=== PATIENT | male | born 1950 | race Caucasian/White ===

== ENCOUNTER 2019-01-28 13:01 | Day surgery (SDC) | payer MEDICARE, OTHER ==
[~2019-01-28 13:01] MED LIST: Lactated Ringers 1,000 ML IV SCH; Sodium Chloride 0.9% 10 ML Syringe FLUSH PRN
[2019-01-28] MEDS ORDERED: Propofol 200 MG/20 ML SDV ONE ×2 (14:32→15:03)
[2019-01-28] MEDS ORDERED: fentaNYL 100 MCG/2 ML SDV ONE (14:33)
[2019-01-28] MEDS ORDERED: Bupivacaine 0.25%/EPINEPHrine 1:200,000 30 ML SDV ONE (14:40)
--- NOTE | 2019-01-28 19:41 | OR ---
PREOPERATIVE DIAGNOSIS: Large symptomatic lipoma, left lower neck. PROCEDURE PROPOSED: Excision of large lipoma, left lower neck, 6 x 4.5 cm. PROCEDURE DONE: Excision of large lipoma, left lower neck, 6 x 4.5 cm. OCCUPATIONAL WORK EXPERIENCE TEACHER: Heather Noguera. INDICATION: This is a 68-year-old gentleman with a symptomatic large lipoma of the lower neck that is becoming increasingly problematic to him with some pain across the trapezius muscle indicating that this lipoma is likely invading into the muscle or fascia. He has had it for about 10 years and it has been slowly growing. TECHNIQUE: The patient was brought to the operative suite, given MAC anesthesia, and placed in the right lateral decubitus position. The left posterior neck and upper back area were then sterilely prepped and draped. The skin and surrounding tissue were locally anesthetized with 0.25% Marcaine with epinephrine using a total of about 30 mL throughout the procedure. The transverse incision was made over this mass and carried down through the rather thick subcutaneous tissue until I encountered the actual lipomatous mass which appeared to be quite well encapsulated. The lipomatous mass was dissected free from the surrounding tissue and removed intact measuring 6 x 4.5 cm. Hemostasis was obtained with cautery in the depths of the tissue and the subcutaneous tissues reapproximated with interrupted 3-0 Vicryl and the skin closed with subcuticular stitch of 4-0 Vicryl and a pressure dressing was applied. He tolerated the procedure well with minimal blood loss and he was taken back to [facility] in good condition. SCM: 01/28/2019 15:17:54 MODL: 01/28/2019 19:31:57 /[id number]
== END 2019-01-28 16:19 | disposition home or self-care (01) ==
LOC: VM.SDS 13:01
PROVIDERS: ATTEND Surgery
DX: D17.0 Benign lipomatous neoplasm of skin and subcutaneous tissue of head, face and neck (principal); I10 Essential (primary) hypertension; I45.10 Unspecified right bundle-branch block; I25.2 Old myocardial infarction; E78.00 Pure hypercholesterolemia, unspecified; E21.3 Hyperparathyroidism, unspecified; K44.9 Diaphragmatic hernia without obstruction or gangrene; K21.9 Gastro-esophageal reflux disease without esophagitis; K31.84 Gastroparesis; R73.03 Prediabetes; M1A.9XX1 Chronic gout, unspecified, with tophus (tophi); E66.9 Obesity, unspecified; Z68.30 Body mass index [BMI] 30.0-30.9, adult; Z79.82 Long term (current) use of aspirin; Z79.899 Other long term (current) drug therapy
CPT/HCPCS: 00300; 21552; 93005; J2704; J3010; J7120

== ENCOUNTER 2019-10-23 13:44 | Emergency (ER) | payer MEDICARE, OTHER ==
[2019-10-23] MEDS ORDERED: Ondansetron 4 MG/2 ML SDV IVPUSH ONE (13:59)
[2019-10-23] MEDS ORDERED: HYDROmorphone 1 MG/ML Syringe IVPUSH ONE (13:59)
[2019-10-23] MEDS ORDERED: Sodium Chloride 0.9% 10 ML Syringe FLUSH PRN (14:00)
[2019-10-23] MEDS ORDERED: Ketorolac 15 MG/ML SDV IVPUSH ONE (14:00)
[2019-10-23 14:28] LABS: ANION GAP 14.8 mmol/L (10-20); CHLORIDE,CL 100 mmol/L (98-107); SODIUM,NA 139 mmol/L (136-145)
--- NOTE | 2019-10-23 14:36 | EDM.PDOC ---
ED HPI GENERAL MEDICAL PROBLEM - General Chief Complaint: Abdominal Pain Time Seen by Provider: 10/23/19 13:55 Source of Information: Reports: Patient, Provider History Limitations: Reports: No Limitations - History of Present Illness INITIAL COMMENTS - FREE TEXT/NARRATIVE: Pt. presents to ER with complaints of abdominal discomfort. Pt. states that it started today about an hour after eating lunch. Pt. states he has been experiencing epigastric pain and underwent a gallbladder ultrasound approx. 1 week ago. There was no evidence of cholelithiasis or cholecystitis. ALT was 222 and AST was 80 on 10/18/19. His total bilirubin then was 2.5. He did not have a white count at that time. Pt. reports that his stool was light colored last week and he also reports dark coloration to his urine. He states that these symptoms have improved. Pt. presented to clinic with similar symptoms today. He was found to be hypotensive in lab today so he was brought to ER for further evaluation and treatment. On arrival to ED, nursing noted a blood pressure of 117/68. Pt. was complaining of a significant amount of pain in the mid upper and upper left abdominal area. Onset: Today Onset Date: 10/23/19 Location: Reports: Abdomen Quality: Reports: Ache, Stabbing, Throbbing Severity: Severe Worsens with: Reports: Eating Associated Symptoms: Reports: Loss of Appetite, Nausea/Vomiting. Denies: Diaphoresis, Fever/Chills Epigastric Pain Score (Numeric/FACES): 0 - Related Data Allergies Allergy/AdvReac Type Severity Reaction Status Date / Time No Known Allergies Allergy Verified 10/23/19 14:22 Home Meds: Home Meds Ascorbate Calcium [Vitamin C] 1,000 mg PO DAILY 01/24/19 [History] Biotin 10 mg PO DAILY 01/24/19 [History] Cholecalciferol (Vitamin D3) [Vitamin D3] 1 cap PO DAILY 01/24/19 [History] Flaxseed Oil 1 cap PO DAILY 01/24/19 [History] Ibuprofen 400 mg PO DAILY 01/24/19 [History] Lisinopril 2 tab PO DAILY 01/24/19 [History] Omeprazole Magnesium 1 tab PO DAILY 01/24/19 [History] Psyllium [Metamucil] 4 cap PO BID 01/24/19 [History] Saw Bernie Fruit [Saw Bernie] 1 cap PO BID 01/24/19 [History] Sennosides [Senna] 1 tab PO DAILY 01/24/19 [History] allopurinoL [Zyloprim] 0.5 tab PO DAILY 01/24/19 [History] hydroCHLOROthiazide [Hydrochlorothiazide] 25 mg PO DAILY 01/24/19 [History] Ubidecarenone [Coenzyme Q-10] 200 mg DAILY 10/23/19 [History] Past Medical History HEENT History: Reports: None Cardiovascular History: Reports: High Cholesterol, Hypertension Respiratory History: Reports: None Gastrointestinal History: Reports: GERD, Hiatal Hernia, Other (See Below) Genitourinary History: Reports: None Musculoskeletal History: Reports: Gout Neurological History: Reports: None Psychiatric History: Reports: None Endocrine/Metabolic History: Reports: Hyperparathyroidism, Obesity/BMI 30+, Other (See Below) Other Endocrine/Metabolic History: prediabetes Hematologic History: Reports: None Immunologic History: Reports: None Oncologic (Cancer) History: Reports: None Dermatologic History: Reports: None - Past Surgical History Head Surgeries/Procedures: Reports: None HEENT Surgical History: Reports: None Cardiovascular Surgical History: Reports: None Respiratory Surgical History: Reports: None GI Surgical History: Reports: EGD Male Surgical History: Reports: None Neurological Surgical History: Reports: None Musculoskeletal Surgical History: Reports: None Oncologic Surgical History: Reports: None Dermatological Surgical History: Reports: None ED ROS GENERAL - Review of Systems Review Of Systems: See Below Constitutional: Reports: No Symptoms HEENT: Reports: No Symptoms Respiratory: Reports: No Symptoms Cardiovascular: Reports: No Symptoms Endocrine: Reports: No Symptoms GI/Abdominal: Reports: Abdominal Pain, Distension. Denies: Black Stool, Bloody Stool, Hematemesis, Hematochezia, Melena : Reports: No Symptoms Musculoskeletal: Reports: No Symptoms Skin: Reports: No Symptoms Neurological: Reports: No Symptoms Psychiatric: Reports: No Symptoms Hematologic/Lymphatic: Reports: No Symptoms Immunologic: Reports: No Symptoms ED EXAM, GENERAL - Physical Exam Exam: See Below Exam Limited By: No Limitations General Appearance: Alert, WD/WN, No Apparent Distress Throat/Mouth: Normal Inspection, Normal Lips, Normal Teeth, Normal Gums, Normal Oropharynx, Normal Voice, No Airway Compromise Head: Atraumatic, Normocephalic Neck: Normal Inspection, Supple, Non-Tender, Full Range of Motion Respiratory/Chest: No Respiratory Distress, Lungs Clear, Normal Breath Sounds, No Accessory Muscle Use, Chest Non-Tender Cardiovascular: Normal Peripheral Pulses, Regular Rate, Rhythm, No Edema, No Gallop, No JVD, No Murmur, No Rub Peripheral Pulses: 4+: Radial (L) GI/Abdominal: Soft, No Organomegaly, No Mass, Distended, Tender (Male) Exam: Deferred Rectal (Males) Exam: Deferred Back Exam: Normal Inspection, Full Range of Motion Extremities: Normal Inspection, Normal Range of Motion, Non-Tender, No Pedal Edema, Normal Capillary Refill Neurological: Alert, Oriented, CN II-XII Intact, Normal Cognition, Normal Gait, Normal Reflexes, No Motor/Sensory Deficits Psychiatric: Normal Affect, Normal Mood Skin Exam: Warm, Dry, Intact, Normal Color, No Rash Lymphatic: No Adenopathy Course - Vital Signs Last Recorded V/S: Last Vital Signs Temp 36.3 C 10/23/19 13:44 Pulse 100 10/23/19 14:45 Resp 20 10/23/19 13:44 BP 128/71 10/23/19 14:45 Pulse Ox 99 10/23/19 13:44 - Orders/Labs/Meds Labs: Laboratory Tests 10/23/19 10/23/19 10/23/19 Range/Units 13:54 13:54 13:54 WBC 12.9 H (4.0-10.0) x10^3/uL RBC 5.32 (4.5-6.0) x10^6/uL Hgb 15.8 (14.0-18.0) g/dL Hct 46.1 (40.0-52.0) % MCV 86.7 (78.0-93.0) fL MCH 29.7 (26.0-32.0) pg MCHC 34.3 (32.0-36.0) g/dL RDW Coeff of Marielos 13.4 (10.0-15.0) % Plt Count 421 H (130-400) x10^3/uL Add Manual Diff Yes Neutrophils % (Manual) 63 (50-80) % Band Neutrophils % 3 (0-6) % Lymphocytes % (Manual) 26 (25-50) % Monocytes % (Manual) 8 (2-11) % Platelet Estimate Adequate Anisocytosis 1+ slight H PT 10.1 (10.0-12.8) SEC INR 0.9 L (2.0-3.5) Sodium 139 (136-145) mmol/L Potassium 3.8 (3.5-5.1) mmol/L Chloride 100 (98-107) mmol/L Carbon Dioxide 28 (21-32) mmol/L Anion Gap 14.8 (10-20) mmol/L BUN 17 (7-18) mg/dL Creatinine 1.2 (0.70-1.30) mg/dL Est Cr Clr Drug Dosing TNP Estimated GFR (MDRD) > 60 Glucose 135 H (74-106) mg/dL Calcium 10.1 (8.5-10.1) mg/dL Corrected Calcium 10.42 H (8.5-10.1) mg/dL Magnesium 1.8 (1.8-2.4) mg/dL Total Bilirubin 2.5 H (0.2-1.0) mg/dL AST 165 H (15-37) U/L ALT 195 H (16-63) U/L Alkaline Phosphatase 224 H (46-116) U/L Total Protein 7.4 (6.4-8.2) g/dL Albumin 3.6 (3.4-5.0) g/dL Globulin 3.8 Albumin/Globulin Ratio 0.95 Meds: Medications Discontinued Medications Generic Name Dose Route Start Last Admin Trade Name Freq PRN Reason Stop Dose Admin Hydromorphone HCl 1 mg 10/23/19 13:59 10/23/19 14:08 Dilaudid IVPUSH 10/23/19 14:00 1 mg ONETIME ONE Administration Iopamidol 100 ml 10/23/19 14:43 10/23/19 14:55 Isovue-300 (61%) IVPUSH 10/23/19 14:44 100 ml ONETIME ONE Administration Ketorolac Tromethamine 15 mg 10/23/19 14:00 10/23/19 14:05 Toradol IVPUSH 10/23/19 14:01 15 mg ONETIME ONE Administration Ondansetron HCl 4 mg 10/23/19 13:59 10/23/19 14:11 Zofran IVPUSH 10/23/19 14:00 4 mg ONETIME ONE Administration Sodium Chloride 10 ml 10/23/19 14:00 Saline Flush FLUSH ASDIRECTED PRN Keep Vein Open Departure - Departure Time of Disposition: 15:55 Disposition: Home, Self-Care 01 Clinical Impression: Epigastric pain - Discharge Information Instructions: Acetaminophen; Hydrocodone tablets or capsules, Gallbladder Eating Plan, Cholecystitis Referrals: Rosa Carvalho DO [Primary Care Provider] - Forms: ED Department Discharge Additional Instructions: Home to rest. Follow the gallbladder eating guideline as outlined in your discharge instructions. If you have continued pain, take norco 10/325mg 1 every 4-6 hours as needed for pain If you have pain that is out of control, or if you have fever, weakness, etc. return to ER. Sepsis Event Note - Focused Exam Date Exam was Performed: 10/25/19 Time Exam was Performed: 01:32 - Assessment/Plan Plan: Home to rest. Follow the gallbladder eating guideline as outlined in your discharge instructions. If you have continued pain, take norco 10/325mg 1 every 4-6 hours as needed for pain If you have pain that is out of control, or if you have fever, weakness, etc. return to ER.
[2019-10-23] MEDS ORDERED: Iopamidol 612 MG/ML 100 ML Bottle IVPUSH ONE (14:43)
--- NOTE | 2019-10-23 15:35 | CT ---
[id number] CT/CT Chest Abdomen Pelvis W IV Exam: CT Chest Abdomen Pelvis W IV Clinical Data: ABDOMINAL PAIN COMPARISON: NO PREVIOUS SIMILAR EXAM IS AVAILABLE FINDINGS: A 1 cm hepatic hypodensity is seen in segment IV A on image 90, series 2 This is currently indeterminate. The gallbladder is slightly distended. The gallbladder wall is normal. Small right renal cysts are identified There is no solid mass or hydronephrosis of either kidney. The pelvis shows no mass or adenopathy There is no evidence of diverticulitis The appendix appears normal. A benign-appearing hemangioma is seen in the lumbar spine. The aorta, adrenals, kidneys, spleen, pancreas, and liver otherwise are unremarkable. There are no pulmonary parenchymal nodules or lung masses There are no pleural effusions There is no mediastinal mass or adenopathy The great vessels are intact. IMPRESSION: SLIGHT DISTENTION OF GALLBLADDER CONSIDER GALLBLADDER ULTRASOUND INDETERMINATE LIVER FINDING CONSIDER FOLLOW-UP WITH ULTRASOUND OR MRI NO OTHER SPECIFIC ABNORMALITY Amado Mcdermott MD 10/23/19 1899 Thank you for allowing us to participate in the care of your patient.
== END 2019-10-23 15:55 | disposition home or self-care (01) ==
LOC: VM.ED 13:44
DX: R10.13 Epigastric pain (principal); I10 Essential (primary) hypertension; K21.9 Gastro-esophageal reflux disease without esophagitis; Z79.899 Other long term (current) drug therapy
CPT/HCPCS: 71260; 74177; 80053; 83735; 85025; 85610; 93005; 96374; 96375; 99284-25; 99284-GF; J1170; J1885; J2405; Q9967

== ENCOUNTER 2019-10-26 12:18 | Emergency (ER) | payer MEDICARE, OTHER ==
[2019-10-26] MEDS ORDERED: Sodium Chloride 0.9% 10 ML Syringe FLUSH PRN (12:24)
--- NOTE | 2019-10-26 12:33 | EDM.PDOC ---
ED HPI GENERAL MEDICAL PROBLEM - General Chief Complaint: Abdominal Pain Stated Complaint: ABDOMINAL PAIN Time Seen by Provider: 10/26/19 12:20 Source of Information: Reports: Patient, Family - History of Present Illness INITIAL COMMENTS - FREE TEXT/NARRATIVE: His into the emergency department with abdominal pain. Patient was here in the emergency department approximately 1 week ago with similar incident. Patient was diagnosed with cholecystitis and has been set up with surgical consultation on Monday. Patient states that he was given pain medication and was discharged from the emergency department after receiving pain medications. Patient states that he began having pain and discomfort on October 14. At that time he went for about 2 days feeling ill he thought he had food poisoning. The symptoms did resolve on its own and he was able to continue with his activities of daily living without any difficulties. However last week he began developing a significant amount of abdominal pain that resulted in a clinic visit. During the clinic visit he became hypotensive and they sent him to the emergency room for further evaluation. He states that the pain medication has been working at home however this morning approximately 2-1/2 hours ago he developed a severe onset of abdominal pain and discomfort that has not resolved. On his way to the emergency department he ended up vomiting one time. He states that the pain comes and goes to sharpshooting sensation in the mid epigastrium to the right epigastric area. Patient describes it as a 9 out of 10 pain. He denies anything that makes the sensation better or worse. He states that this morning for breakfast he had oatmeal. A CT scan was completed on 10/23/19- slight distention of gallbladder, consider gallbladder ultrasound, intermediate liver findings, consider follow-up with ultrasound or MRI, no other specific abnormalities noted. Read by Amado Mendez M.D. Gallbladder ultrasound completed through [facility]- records not available for review. Patient states they diagnosed with cholecystitis Onset: Gradual Duration: Waxing/Waning Location: Reports: Abdomen Quality: Reports: Sharp, Stabbing Improves with: Reports: None Worsens with: Reports: None Associated Symptoms: Reports: No Other Symptoms Upper Abdomen Pain Score (Numeric/FACES): 5 - Related Data Allergies Allergy/AdvReac Type Severity Reaction Status Date / Time No Known Allergies Allergy Verified 10/26/19 12:57 Home Meds: Home Meds Ascorbate Calcium [Vitamin C] 1,000 mg PO DAILY 01/24/19 [History] Biotin 10 mg PO DAILY 01/24/19 [History] Cholecalciferol (Vitamin D3) [Vitamin D3] 1 cap PO DAILY 01/24/19 [History] Flaxseed Oil 1 cap PO DAILY 01/24/19 [History] Ibuprofen 400 mg PO DAILY 01/24/19 [History] Lisinopril 2 tab PO DAILY 01/24/19 [History] Omeprazole Magnesium 1 tab PO DAILY 01/24/19 [History] Psyllium [Metamucil] 4 cap PO BID 01/24/19 [History] Saw [place] Fruit [Saw [place]] 1 cap PO BID 01/24/19 [History] Sennosides [Senna] 1 tab PO DAILY 01/24/19 [History] allopurinoL [Zyloprim] 0.5 tab PO DAILY 01/24/19 [History] hydroCHLOROthiazide [Hydrochlorothiazide] 25 mg PO DAILY 01/24/19 [History] Ubidecarenone [Coenzyme Q-10] 200 mg DAILY 10/23/19 [History] Past Medical History HEENT History: Reports: None Other HEENT History: tinnitis Cardiovascular History: Reports: High Cholesterol, Hypertension Respiratory History: Reports: None Gastrointestinal History: Reports: GERD, Hiatal Hernia, Other (See Below) Genitourinary History: Reports: None Musculoskeletal History: Reports: Gout Neurological History: Reports: None Psychiatric History: Reports: None Endocrine/Metabolic History: Reports: Hyperparathyroidism, Obesity/BMI 30+, Other (See Below) Other Endocrine/Metabolic History: prediabetes Hematologic History: Reports: None Immunologic History: Reports: None Oncologic (Cancer) History: Reports: None Dermatologic History: Reports: None Other Dermatologic History: lipoma of neck - Past Surgical History Head Surgeries/Procedures: Reports: None HEENT Surgical History: Reports: None Cardiovascular Surgical History: Reports: None Respiratory Surgical History: Reports: None GI Surgical History: Reports: EGD Male Surgical History: Reports: None Neurological Surgical History: Reports: None Musculoskeletal Surgical History: Reports: None Oncologic Surgical History: Reports: None Dermatological Surgical History: Reports: None ED ROS GENERAL - Review of Systems Review Of Systems: See Below Constitutional: Reports: No Symptoms HEENT: Reports: No Symptoms Respiratory: Reports: No Symptoms Cardiovascular: Reports: No Symptoms : Reports: No Symptoms Musculoskeletal: Reports: No Symptoms Skin: Reports: No Symptoms Neurological: Reports: No Symptoms ED EXAM, GI/ABD - Physical Exam Exam: See Below Exam Limited By: No Limitations General Appearance: Alert, WD/WN, Mild Distress Head: Atraumatic, Normocephalic Neck: Normal Inspection, Supple, Non-Tender Respiratory/Chest: No Respiratory Distress, Lungs Clear, Normal Breath Sounds, No Accessory Muscle Use, Chest Non-Tender Cardiovascular: Normal Peripheral Pulses, Regular Rate, Rhythm, No Edema, No Gallop, No JVD, No Murmur, No Rub GI/Abdominal Exam: Normal Bowel Sounds, Soft, No Organomegaly, No Mass, Pelvis Stable, Tender. No: Abnormal Bowel Sounds Back Exam: Normal Inspection, Full Range of Motion, NT Extremities: Normal Inspection, Normal Range of Motion, Non-Tender, Normal Capillary Refill, No Pedal Edema Neurological: Alert, Oriented, CN II-XII Intact, Normal Cognition, Normal Gait, Normal Reflexes Psychiatric: Normal Affect, Normal Mood Skin Exam: Intact, Normal Color, No Rash, Other (clammy ) Course - Vital Signs Last Recorded V/S: Last Vital Signs Temp 35.5 C 10/26/19 12:25 Pulse 71 10/26/19 12:25 Resp 16 10/26/19 12:25 BP 133/68 10/26/19 12:25 Pulse Ox 99 10/26/19 12:25 - Orders/Labs/Meds Orders: Active Orders 24 hr Category Date Time Status CULTURE BLOOD [BC] Stat Lab 10/26/19 12:34 Received CULTURE BLOOD [BC] Stat Lab 10/26/19 12:43 Received Sodium Chloride 0.9% [Saline Flush] Med 10/26/19 12:24 Active 10 ml FLUSH ASDIRECTED PRN Blood Culture x2 Reflex Set [OM.PC] Stat Oth 10/26/19 12:24 Ordered Peripheral IV Insertion Adult [OM.PC] Stat Oth 10/26/19 12:23 Ordered Medication Orders Sodium Chloride (Saline Flush) 10 ml FLUSH ASDIRECTED PRN PRN Reason: Keep Vein Open Labs: Laboratory Tests 10/26/19 10/26/19 10/26/19 Range/Units 12:34 12:43 12:43 WBC 15.0 H (4.0-10.0) x10^3/uL RBC 5.09 (4.5-6.0) x10^6/uL Hgb 15.3 (14.0-18.0) g/dL Hct 44.2 (40.0-52.0) % MCV 86.8 (78.0-93.0) fL MCH 30.1 (26.0-32.0) pg MCHC 34.6 (32.0-36.0) g/dL RDW Coeff of Marielos 13.7 (10.0-15.0) % Plt Count 439 H (130-400) x10^3/uL Add Manual Diff Yes Neutrophils % (Manual) 71 (50-80) % Band Neutrophils % 4 (0-6) % Lymphocytes % (Manual) 10 L (25-50) % Reactive Lymphs % 8 H (0) % Monocytes % (Manual) 6 (2-11) % Eosinophils % (Manual) 1 (0-4) % Vacuolated Monocytes 1+ slight H Toxic Granulation 1+ slight H Platelet Estimate Increased H Sodium 135 L (136-145) mmol/L Potassium 3.4 L (3.5-5.1) mmol/L Chloride 97 L (98-107) mmol/L Carbon Dioxide 24 (21-32) mmol/L Anion Gap 17.4 (10-20) mmol/L BUN 16 (7-18) mg/dL Creatinine 1.2 (0.70-1.30) mg/dL Est Cr Clr Drug Dosing 53.17 mL/min Estimated GFR (MDRD) > 60 Glucose 147 H (74-106) mg/dL Lactic Acid 2.6 H* (0.4-2.0) mmol/L Calcium 10.4 H (8.5-10.1) mg/dL Corrected Calcium 10.80 H (8.5-10.1) mg/dL Total Bilirubin 4.1 H (0.2-1.0) mg/dL AST 114 H (15-37) U/L ALT 234 H (16-63) U/L Alkaline Phosphatase 291 H (46-116) U/L Creatine Kinase 54 (39-308) U/L Total Protein 7.6 (6.4-8.2) g/dL Albumin 3.5 (3.4-5.0) g/dL Globulin 4.1 Albumin/Globulin Ratio 0.85 Amylase 39 (25-115) U/L Lipase 394 H (73-393) U/L Meds: Medications Generic Name Dose Route Start Last Admin Trade Name Freq PRN Reason Stop Dose Admin Sodium Chloride 10 ml 10/26/19 12:24 Saline Flush FLUSH ASDIRECTED PRN Keep Vein Open Discontinued Medications Generic Name Dose Route Start Last Admin Trade Name Freq PRN Reason Stop Dose Admin Ceftriaxone Sodium 1 gm 10/26/19 12:57 10/26/19 13:18 Rocephin IVPUSH 10/26/19 12:58 1 gm ONETIME ONE Administration Hydromorphone HCl 1 mg 10/26/19 12:24 10/26/19 12:38 Dilaudid IVPUSH 10/26/19 12:25 1 mg ONETIME ONE Administration Ondansetron HCl 8 mg/ Sodium 104 mls @ 400 mls/hr 10/26/19 12:24 10/26/19 12: 39 Chloride IV 10/26/19 12:39 400 mls/hr ONETIME ONE Administration Sodium Chloride 1,000 mls @ 999 mls/hr 10/26/19 12:25 10/26/19 12:39 Normal Saline IV 10/26/19 13:25 999 mls/hr ONETIME ONE Administration Departure - Departure Time of Disposition: 13:50 Disposition: DC/Tfer to [facility] 02 Clinical Impression: Cholecystitis Vomiting Qualifiers: Vomiting type: unspecified Vomiting Intractability: non-intractable Nausea presence: with nausea Qualified Code(s): R11.2 - Nausea with vomiting, unspecified - Discharge Information *PRESCRIPTION DRUG MONITORING PROGRAM REVIEWED*: Not Applicable *COPY OF PRESCRIPTION DRUG MONITORING REPORT IN PATIENT RAJANI: Not Applicable Forms: ED Department Discharge, Interfacility Transfer EMTALA Sepsis Event Note - Focused Exam Vital Signs: Vital Signs Temp Pulse Resp BP Pulse Ox 10/26/19 12:25 35.5 C 71 16 133/68 99 Date Exam was Performed: 10/26/19 Time Exam was Performed: 13:27 - My Orders Last 24 Hours: My Active Orders 10/26/19 12:23 Peripheral IV Insertion Adult [OM.PC] Stat 10/26/19 12:24 Sodium Chloride 0.9% [Saline Flush] 10 ml FLUSH ASDIRECTED PRN Blood Culture x2 Reflex Set [OM.PC] Stat 10/26/19 12:34 CULTURE BLOOD [BC] Stat 10/26/19 12:43 CULTURE BLOOD [BC] Stat - Assessment/Plan Last 24 Hours: My Active Orders 10/26/19 12:23 Peripheral IV Insertion Adult [OM.PC] Stat 10/26/19 12:24 Sodium Chloride 0.9% [Saline Flush] 10 ml FLUSH ASDIRECTED PRN Blood Culture x2 Reflex Set [OM.PC] Stat 10/26/19 12:34 CULTURE BLOOD [BC] Stat 10/26/19 12:43 CULTURE BLOOD [BC] Stat Assessment:: 1. abdominal pain 2. Cholecystitis 3. Nausea vomiting Plan: 1. Labs completed in the ER. Results reviewed with patient 2. IV initiated with IV fluids, Rocephin 1gm IV 3. Dilaudid and Zofran given for pain and nausea vomiting 4. Consult completed with [id number] with [facility]. They will call back with appropriate provider when available. 5. Consultation completed with Dr. Hampton [id number] who will accept direct admit and further medical/surgical management of this patient 6. Patient will be transferred by ambulance for surgical consultation 7. All questions and concerns were addressed prior to discharge.
[2019-10-26] MEDS: HYDROmorphone 1 MG/ML Syringe IVPUSH ONE (12:38)
[2019-10-26] MEDS: Sodium Chloride 0.9% 1,000 ML IV ONE (12:39)
[2019-10-26] MEDS: Ondansetron 8 MG in Sodium Chloride 0.9% 100 ML IV ONE (12:39)
[2019-10-26 13:09] LABS: CHLORIDE,CL 97 mmol/L (98-107); SODIUM,NA 135 mmol/L (136-145)
[2019-10-26 13:11] LABS: ANION GAP 17.4 mmol/L (10-20)
[2019-10-26] MEDS: cefTRIAXone 1 GM Vial IVPUSH ONE (13:18)
[2019-10-26] MEDS ORDERED: Sodium Chloride 0.9% 1,000 ML IV SCH (16:15)
== END 2019-10-26 16:15 | disposition short-term general hospital (02) ==
LOC: VM.ED 12:18
DX: K81.9 Cholecystitis, unspecified (principal); I10 Essential (primary) hypertension; E78.00 Pure hypercholesterolemia, unspecified; K21.9 Gastro-esophageal reflux disease without esophagitis; M10.9 Gout, unspecified; E66.9 Obesity, unspecified; Z68.39 Body mass index [BMI] 39.0-39.9, adult; Z79.899 Other long term (current) drug therapy
CPT/HCPCS: 36415; 80053; 82150; 82550; 83605; 83690; 85025; 87040; 87077; 87186; 96361; 96374; 96375; 99284-25; 99284-GF; J0696; J1170; J2405; J7030; J7050